=== PATIENT | female | born 1955 | race Caucasian/White ===

== ENCOUNTER 2017-12-26 17:00 | Inpatient (IN) | payer BC ==
[~2017-12-26] VITALS: Ht 162.6 cm; Wt 69.0 kg
[2017-12-26 18:09] LABS: BASOPHILS # (AUTO) 0.1 (0.0-0.1); BASOPHILS % 1.1 % (0.0-1.0); EOSINOPHILS # (AUTO) 0.8 (0.0-0.4); EOSINOPHILS % 9.5 % (0.0-6.0); HEMATOCRIT 45.3 % (34.2-44.1); HEMOGLOBIN 14.9 g/dL (12.0-16.0); LYMPHOCYTES # (AUTO) 1.8 (1.0-3.2); LYMPHOCYTES % 21.8 % (18.0-39.1); MEAN CORPUSCULAR HEMOGLOBIN 27.9 pg (28-32); MEAN CORPUSCULAR HGB CONC 32.9 g/dL (31-35); MEAN CORPUSCULAR VOLUME 84.7 fL (81-99); MONOCYTES # (AUTO) 0.6 (0.2-0.8); MONOCYTES % 7.6 % (4.4-11.3); NEUTROPHILS % 59.6 % (38.7-80.0); PLATELET COUNT 404 x10e3/uL (140-360); RED BLOOD COUNT 5.35 x10e6/uL (3.6-5.1); RED CELL DISTRIBUTION WIDTH 13.2 % (11.7-14.4)
[2017-12-26 18:18] LABS: INR 1.04; PROTHROMBIN TIME 12.8 seconds (11.9-14.5)
[2017-12-26 18:19] LABS: PARTIAL THROMBOPLASTIN TIME 28.1 seconds (23.8-35.5)
[2017-12-26 18:25] LABS: ALANINE AMINOTRANSFERASE 8 IU/L (0-55); ALBUMIN 3.6 g/dL (3.5-5.0); ALBUMIN/GLOBULIN RATIO 0.9 (0.8-2.0); ALKALINE PHOSPHATASE 86 IU/L (40-150); ANION GAP 13.8 mmol/L (8-16); BLOOD UREA NITROGEN < 5 mg/dL (7-26); CALCIUM 9.6 mg/dL (8.4-10.2); CARBON DIOXIDE 25 mmol/L (22-29); CHLORIDE 100 mmol/L (98-107); EST GLOMERULAR FILTRATION RATE > 60 ML/MIN (60-); GLUCOSE 88 mg/dL (74-118); POTASSIUM 3.8 mmol/L (3.5-5.1); SODIUM 135 mmol/L (136-145)
--- NOTE | 2017-12-26 18:25 | Diagnostic Imaging Report ---
PROCEDURE: Frontal and lateral views of the chest. COMPARISON: None. INDICATIONS: FLUID IN LUNG FINDINGS: Lines/tubes: None. Lungs and pleura: Lungs are well-inflated. Moderate right-sided pleural effusion with associated right lower lobe compressive atelectasis and/or consolidation. Linear opacities projecting in the left costophrenic sulcus on the frontal view likely represents subsegmental atelectasis or scarring in the lingula 6 mm nodular density projecting in the retrocardiac region on the frontal view may represent a calcified granuloma. Mild prominence of the interstitial markings. Heart and mediastinum: Cardiac silhouette is unremarkable. Pulmonary vasculature is normal. Bones: No acute bony abnormality. IMPRESSION: 1. moderate right pleural effusion and associated right lower lobe compressive atelectasis and/or consolidation. 2. Mild prominence of interstitial markings may reflect chronic interstitial changes. 3. Subsegmental atelectasis or scarring in the lingula. Long Reyna M.D. Dictated by: Long Reyna M.D. on 12/26/2017 at 18:29 Electronically approved by: Long Reyna M.D. on 12/26/2017 at 18:29
[2017-12-26 18:26] LABS: BUN/CREATININE RATIO 8 (6-25)
[2017-12-26] MEDS ORDERED: ONDANSETRON HCL INJ 2 MG/ML VIAL IV STA (18:34)
[2017-12-26] MEDS ORDERED: MORPHINE SULFATE 2 MG/ML SYR IV STA (18:34)
[2017-12-26 18:55] LABS: CREATINE KINASE 55 IU/L (29-168)
--- NOTE | 2017-12-26 20:03 | Diagnostic Imaging Report ---
EXAM: XR CHEST 1 VIEW DATE: 12/26/2017 7:48 PM INDICATION: Status post thoracentesis COMPARISON: Same day at 1748 FINDINGS: Lines and Tubes: None Heart and Mediastinum: No acute cardiomediastinal findings. Lungs and Pleura: Moderate pleural parenchymal opacity in the right mid and lower lung obscuring the right hemidiaphragm is similar allowing for differences in technique/positioning. Bones and Soft Tissues: No acute findings. IMPRESSION: 1. Persistent small to moderate right effusion with superimposed atelectasis and/or pneumonia. Underlying malignancy not excluded. 2. Interstitial prominence asymmetric to the right could represent edema, with lymphangitic spread of malignancy not excluded. Signed by: Dr. Mal العلي MD on 12/26/2017 7:59 PM
[2017-12-26 20:27] LABS: BODY FLUID APPEARANCE CLOUDY; BODY FLUID COLOR YELLOW; BODY FLUID TYPE PLEURAL; RBC,BODY FLUID 80 cells/uL; WBC,BODY FLUID 1304 cells/uL
--- NOTE | 2017-12-26 20:48 | Diagnostic Imaging Report ---
EXAM: CT Chest WITH contrast INDICATION: COMPARISON: Same day radiographs TECHNIQUE: The Chest was scanned utilizing a multidetector helical scanner after administration of IV contrast. Coronal and sagittal reformations were obtained. Reformatted axial MIP images were obtained and reviewed. IV CONTRAST: COMPLICATIONS: None RADIATION DOSE: Total DLP: 509 mGy*cm Estimated effective dose: (DLP x 0.015 x size factor) mSv CTDIvol has been reviewed. It is below the limits set by the Radiation Protocol Committee (RPC). FINDINGS: Lines and Tubes: None. Lower Neck: Necrotic 25 x 29 mm supraclavicular lymph node on the right. Heart and Great Vessels: The aorta and main pulmonary artery measure 32 and 32 mm. respectively. No pericardial effusion. No central pulmonary and bolus. Moderate narrowing right lower lobe pulmonary artery. Lymph Nodes: Right paratracheal and hilar mass/adenopathy as below. 21 x 8 mm level 6. Lungs: Ill-defined right hilar mass measuring approximately 66 x 53 mm encasing the right pulmonary artery, narrowing the right lower lobe bronchus, and obstructing the right middle lobe bronchus. Mass crosses to the left of midline in the subcarinal and supraclinoid region with contact of more than 180 degrees of the left mainstem bronchus. Mass extends into the right peritracheal region with 41 x 27 mm mass in the 2R/4R region. Proximal moderate bronchial wall thickening presumed lymphangitic spread of malignancy with additional advanced septal thickening in the right upper lobe and right lower lobe suggesting lymphangitic spread of malignancy. There is complete collapse of the right middle lobe. Moderate emphysematous changes are present. Atelectasis right lung base presumed postobstructive. Small right effusion. Upper abdomen: There is nodularity of the left adrenal gland most focally measuring 19 mm. 14 mm hepatic hypodensity image 94, 16 mm hypodensity image 95. Bones and Soft Tissues: No acute findings. IMPRESSION: 1. Large right hilar mass most consistent with primary malignancy. Extensive mediastinal/hilar adenopathy and lymphangitic spread of malignancy throughout the right lung. There is narrowing of the right upper lobe and lower lobe bronchi with obliteration of the right middle lobe bronchus and collapse of the right middle lobe. 2. Presumed hepatic and possibly left adrenal adenopathy. Metastatic right supraclavicular adenopathy. Signed by: Dr. Mal العلي MD on 12/26/2017 8:44 PM
[2017-12-26 21:22] LABS: EOSINOPHILS,BODY FLUID 46 %; LYMPHOCYTES,BODY FLUID 36 %; MONO/MACROPHG,BODY FLUID 10 %; NEUTROPHILS,BODY FLUID 2 %
[2017-12-26 21:23] LABS: OTHER CELLS,BODY FLUID 6 %
[2017-12-26 22:00] VITALS: BP 138/88
[2017-12-26] MEDS ORDERED: SODIUM CHLORIDE 0.9% 50ML 50 ML ONE (22:38)
[2017-12-26] MEDS ORDERED: IOPAMIDOL 370 MG/ML 200 ML INFUS..BTL INJ ONE (22:38)
[2017-12-26] MEDS: FAMOTIDINE 20 MG TAB PO SCH (22:48)
[2017-12-26 22:58] VITALS: BP 138/88
[2017-12-27] VITALS (11 sets, daily range): BP systolic 82–126; BP diastolic 60–90
[2017-12-27 03:04] LABS: CREATINE KINASE 51 IU/L (29-168)
[2017-12-27 05:53] LABS: BASOPHILS # (AUTO) 0.1 (0.0-0.1); BASOPHILS % 0.7 % (0.0-1.0); EOSINOPHILS # (AUTO) 0.7 (0.0-0.4); EOSINOPHILS % 8.4 % (0.0-6.0); HEMATOCRIT 44.3 % (34.2-44.1); HEMOGLOBIN 14.3 g/dL (12.0-16.0); LYMPHOCYTES # (AUTO) 1.9 (1.0-3.2); LYMPHOCYTES % 21.9 % (18.0-39.1); MEAN CORPUSCULAR HEMOGLOBIN 27.7 pg (28-32); MEAN CORPUSCULAR HGB CONC 32.3 g/dL (31-35); MEAN CORPUSCULAR VOLUME 85.9 fL (81-99); MONOCYTES # (AUTO) 0.8 (0.2-0.8); MONOCYTES % 9.8 % (4.4-11.3); NEUTROPHILS % 58.8 % (38.7-80.0); PLATELET COUNT 413 x10e3/uL (140-360); RED BLOOD COUNT 5.16 x10e6/uL (3.6-5.1); RED CELL DISTRIBUTION WIDTH 13.4 % (11.7-14.4)
[2017-12-27 06:14] LABS: ANION GAP 13.8 mmol/L (8-16); BLOOD UREA NITROGEN < 5 mg/dL (7-26); CALCIUM 9.4 mg/dL (8.4-10.2); CARBON DIOXIDE 24 mmol/L (22-29); CHLORIDE 99 mmol/L (98-107); CHOL/HDL RATIO 2.8 (3.0-3.6); CHOLESTEROL 126 MD/DL (0-199); CREATININE, SERUM 0.63 mg/dL (0.57-1.11); EST GLOMERULAR FILTRATION RATE > 60 ML/MIN (60-); GLUCOSE 113 mg/dL (74-118); HDL CHOLESTEROL 45 MG/DL (40-60); LDL CHOLESTEROL 63 MG/DL (60-130); POTASSIUM 3.8 mmol/L (3.5-5.1); SODIUM 133 mmol/L (136-145); TRIGLYCERIDES 90 MG/DL (0-149)
[2017-12-27 06:22] LABS: BUN/CREATININE RATIO 8 (6-25)
[2017-12-27] MEDS: ONDANSETRON HCL INJ 2 MG/ML VIAL IV PRN (06:32)
[2017-12-27] MEDS: HYDROMORPHONE 1MG/1ML INJ IV PRN ×2 (06:32→21:01)
[2017-12-27 06:41] LABS: CREATINE KINASE 55 IU/L (29-168)
[2017-12-27] MEDS: FAMOTIDINE 20 MG TAB PO SCH ×2 (08:00→20:45)
[2017-12-27] MEDS: NICOTINE 21 MG/EA PATCH TOP SCH (09:00)
[2017-12-27] MEDS ORDERED: XANAX0.5 MG (12:15)
[2017-12-27] MEDS ORDERED: DAPAGLIFLOZIN PO (12:15)
[2017-12-27] MEDS ORDERED: LEXAPRO20 MG PO (12:15)
[2017-12-27] MEDS ORDERED: METOPROLOL SUCC50 MG PO (12:15)
[2017-12-27] MEDS ORDERED: LEVOTHYROXINE75 MCG PO (12:15)
[2017-12-27] MEDS ORDERED: ASPIR 8181 MG PO (12:15)
[2017-12-27] MEDS ORDERED: IRBESARTAN150 MG PO (12:15)
[2017-12-27] MEDS ORDERED: AMLODIPINE BESY10 MG PO (12:15)
[2017-12-27 15:10] LABS: CREATINE KINASE 60 IU/L (29-168)
[2017-12-27] MEDS ORDERED: ALPRAZOLAM 0.5 MG TAB PO SCH (15:15)
--- NOTE | 2017-12-27 16:10 | History and Physical ---
NO DICTATION, LENGTH 1 SECOND. Job#: [id number] MH
[2017-12-27] MEDS: ALBUTEROL/IPRATROPIUM 3 ML NEB NEB SCH (20:00)
[2017-12-27] MEDS ORDERED: METFORMIN HCL500 MG PO (20:49)
[2017-12-27] MEDS ORDERED: PROAIR HFA INH8.5 GM (20:49)
[2017-12-28] VITALS (8 sets, daily range): BP systolic 89–117; BP diastolic 60–71
[2017-12-28] MEDS: ALBUTEROL/IPRATROPIUM 3 ML NEB NEB SCH ×4 (01:00→20:35)
[2017-12-28] MEDS: HYDROMORPHONE 1MG/1ML INJ IV PRN ×4 (04:10→23:08)
[2017-12-28] MEDS: ONDANSETRON HCL INJ 2 MG/ML VIAL IV PRN ×3 (04:14→23:04)
[2017-12-28] MEDS: LEVOTHYROXINE SODIUM 125 MCG TAB PO SCH (06:05)
[2017-12-28] MEDS: ASPIRIN 81 MG CHEW TAB PO SCH (08:41)
[2017-12-28] MEDS: FAMOTIDINE 20 MG TAB PO SCH ×2 (08:41→21:56)
[2017-12-28] MEDS: IRBESARTAN 150 MG TAB PO SCH (08:42)
[2017-12-28] MEDS: METOPROLOL SUCCINATE 50 MG TAB XL PO SCH ×3 (08:44→16:00)
[2017-12-28] MEDS: ESCITALOPRAM OXALATE 10 MG TAB PO SCH (08:44)
[2017-12-28] MEDS: NICOTINE 21 MG/EA PATCH TOP SCH (08:44)
[2017-12-28] MEDS: AMLODIPINE BESYLATE 5 MG TAB PO SCH (08:44)
[2017-12-28] MEDS ORDERED: DAPAGLIFLOZIN 5 MG PO SCH (09:00)
[2017-12-28] MEDS ORDERED: AMLODIPINE BESYLATE 10 MG TAB PO SCH (09:00)
[2017-12-28] MEDS: DAPAGLIFLOZIN 5 MG PO SCH (09:00)
[2017-12-28] MEDS ORDERED: LEVOTHYROXINE SODIUM 75 MCG TAB PO SCH (09:00)
[2017-12-28] MEDS ORDERED: NON-FORMULARY MEDICATION (Escitalopram Oxalate (Lexapro) 20 MG) PO SCH (09:00)
[2017-12-29] VITALS (8 sets, daily range): BP systolic 81–129; BP diastolic 51–80
[2017-12-29] MEDS: ALBUTEROL/IPRATROPIUM 3 ML NEB NEB SCH ×5 (00:39→23:45)
[2017-12-29] MEDS: LEVOTHYROXINE SODIUM 125 MCG TAB PO SCH (05:30)
[2017-12-29] MEDS: HYDROMORPHONE 1MG/1ML INJ IV PRN (08:30)
[2017-12-29] MEDS: ASPIRIN 81 MG CHEW TAB PO SCH (08:37)
[2017-12-29] MEDS: NICOTINE 21 MG/EA PATCH TOP SCH (08:37)
[2017-12-29] MEDS: FAMOTIDINE 20 MG TAB PO SCH ×2 (08:37→19:53)
[2017-12-29] MEDS: IRBESARTAN 150 MG TAB PO SCH (08:37)
[2017-12-29] MEDS: DAPAGLIFLOZIN 5 MG PO SCH (08:38)
[2017-12-29] MEDS: AMLODIPINE BESYLATE 5 MG TAB PO SCH (08:38)
[2017-12-29] MEDS: ESCITALOPRAM OXALATE 10 MG TAB PO SCH (08:38)
[2017-12-29] MEDS: METOPROLOL SUCCINATE 50 MG TAB XL PO SCH (08:38)
[2017-12-29] MEDS: HYDROCODONE/APAP 5MG-325MG TAB PO PRN ×2 (13:22→19:57)
--- NOTE | 2017-12-29 13:40 | Consultation ---
DATE OF CONSULTATION: PULMONARY CONSULTATION This is a patient of Dr. Lonnie Brooks and Dr. Ronen Pizano. The patient was referred to the hospital from Dr. Pizano's office with shortness of breath and pain in the back of 3 days' duration. It awakened her from rest. No fever or chills. Scant sputum, no hemoptysis. PAST HISTORY: Hypothyroidism. ALLERGIES: NO KNOWN ALLERGIES. MEDICATIONS: Include albuterol, metformin, Xanax, amlodipine, aspirin, Lexapro, irbesartan, levothyroxine 75 mcg, metoprolol and dapaglifozin for diabetes. She is uncertain whether she lost weight. SOCIAL HISTORY: A frail, white female, looking her stated age. Works as a product designer of fire products. Smoked a pack of cigarettes a day for 40 years. Born in [place]. SURGERIES: Gallbladder, calcium deposits removed from her legs. FAMILY HISTORY: Noncontributory. PHYSICAL EXAMINATION HEAD: Normocephalic and atraumatic. LUNGS: Diminished breath sounds at right chest. Rhonchi are located to the right chest. HEART: Regular rhythm. ABDOMEN: Nontender. EXTREMITIES: Not edematous. Thoracentesis was performed. Fluid was apparently not sent for cytology. This was discussed with the patient. The results will not be back until Saturday at the earliest. She has agreed to bronchoscopy and transbronchial biopsy. This will be scheduled for 12/30/2017 at 9 a.m. Thank you for this kind referral. Job#: [id number]
[2017-12-30] VITALS (7 sets, daily range): BP systolic 87–112; BP diastolic 62–75
[2017-12-30] MEDS: ALPRAZOLAM 1 MG TAB PO PRN (03:11)
[2017-12-30] MEDS: LEVOTHYROXINE SODIUM 125 MCG TAB PO SCH (05:08)
[2017-12-30] MEDS: ALBUTEROL/IPRATROPIUM 3 ML NEB NEB SCH ×3 (06:57→20:00)
[2017-12-30] MEDS: FAMOTIDINE 20 MG TAB PO SCH ×2 (08:00→20:26)
[2017-12-30] MEDS ORDERED: LIDOCAINE HCL 4% 50 ML BTL ONE (08:40)
[2017-12-30] MEDS ORDERED: OXYMETAZOLINE HCL 0.05% NAS 1 SPRAY BTL ONE (08:41)
[2017-12-30] MEDS ORDERED: LIDOCAINE HCL 2% 30 ML TUBE ONE (08:41)
[2017-12-30] MEDS ORDERED: ACETYLCYSTEINE 200 MG/ML 4ML VIAL ONE (08:41)
[2017-12-30] MEDS: IRBESARTAN 150 MG TAB PO SCH (09:00)
[2017-12-30] MEDS: ESCITALOPRAM OXALATE 10 MG TAB PO SCH (09:00)
[2017-12-30] MEDS: AMLODIPINE BESYLATE 5 MG TAB PO SCH (09:00)
[2017-12-30] MEDS: DAPAGLIFLOZIN 5 MG PO SCH (09:00)
[2017-12-30] MEDS: ASPIRIN 81 MG CHEW TAB PO SCH (09:00)
[2017-12-30] MEDS: METOPROLOL SUCCINATE 50 MG TAB XL PO SCH (09:00)
--- NOTE | 2017-12-30 10:00 | Operative Report ---
DATE OF PROCEDURE: PROCEDURE: Bronchoscopy. Patient of Dr. Pizano and Dr. Lonnie Brooks. Patient with apparent tumor in the middle lobe. Bronchoscopy was performed for diagnosis. ANESTHESIA: MAC provided by Dr. Guerrier. BLOOD LOSS: Approximately 5 mL. The patient was bronchoscoped via an LMA. Normal vocal cord. Mild laryngitis. There was a moderate amount of secretions. Tumor was largely obstructing the right mainstem bronchus. Bronchoscope could not be passed the obstruction. Five bronchial biopsies, washings and a brushing were obtained. The tumor appeared to be approximately 1 cm below the natalio. There appeared to be some splaying of the natalio as well. Job#: [id number] SHARYN
--- NOTE | 2017-12-30 11:05 | Diagnostic Imaging Report ---
PROCEDURE: CHEST SINGLE (PORTABLE) COMPARISON: CT chest 12/26/2017. INDICATIONS: STATUS POST BRONCHOSCOPY FINDINGS: Right-sided hilar mass with mediastinal invasion and post obstructive right middle lobe pneumonia is seen to better advantage of comparison CT. Right upper lobe remains well aerated. Left lung is clear. Cardiomediastinal contour stable. No pneumothorax. No acute osseous abnormality. CONCLUSION: Grossly stable radiographic appearance of right hilar mass with post obstructive right middle lobe pneumonia and mediastinal invasion. No pneumothorax status post bronchoscopy. Dictated by: Haroon Recinos M.D. on 12/30/2017 at 11:09 Electronically approved by: Haroon Recinos M.D. on 12/30/2017 at 11:09
[2017-12-30] MEDS: NICOTINE 21 MG/EA PATCH TOP SCH (12:00)
[2017-12-30] MEDS: HYDROCODONE/APAP 5MG-325MG TAB PO PRN ×2 (12:20→20:26)
[2017-12-30] MEDS ORDERED: SEVOFLURANE INHAL SOLN 250 ML PEN BTL ONE (17:37)
[2017-12-30] MEDS ORDERED: LIDOCAINE HCL 2% LOCAL INJ 5 ML SDV VIAL INJ ONE (17:37)
[2017-12-30] MEDS ORDERED: PROPOFOL IV EMULSION 10 MG/ML 20 ML VIAL ONE (17:37)
[2017-12-30] MEDS ORDERED: MIDAZOLAM HCL 2 MG/2 ML VIAL ONE (17:39)
[2017-12-30] MEDS ORDERED: FENTANYL CITRATE/PF 100MCG/2 ML INJ ONE (17:39)
[2017-12-30] MEDS ORDERED: KETAMINE HCL INJ 50 MG/ML 10 ML VIAL ONE (17:39)
[2017-12-31] VITALS: BP 115/72
[2017-12-31] MEDS: ALBUTEROL/IPRATROPIUM 3 ML NEB NEB SCH ×4 (00:30→20:30)
[2017-12-31 01:55] VITALS: BP 115/72
[2017-12-31 04:00] VITALS: BP 121/80
[2017-12-31] MEDS: LEVOTHYROXINE SODIUM 125 MCG TAB PO SCH (05:32)
[2017-12-31] MEDS: HYDROCODONE/APAP 5MG-325MG TAB PO PRN ×2 (06:26→17:08)
[2017-12-31] MEDS: METOPROLOL SUCCINATE 50 MG TAB XL PO SCH (08:15)
[2017-12-31] MEDS: AMLODIPINE BESYLATE 5 MG TAB PO SCH (08:16)
[2017-12-31] MEDS: IRBESARTAN 150 MG TAB PO SCH (08:16)
[2017-12-31 08:20] VITALS: BP 100/62
[2017-12-31] MEDS: FAMOTIDINE 20 MG TAB PO SCH ×2 (08:26→21:44)
[2017-12-31] MEDS: ASPIRIN 81 MG CHEW TAB PO SCH (08:26)
[2017-12-31] MEDS: NICOTINE 21 MG/EA PATCH TOP SCH (08:27)
[2017-12-31] MEDS: DAPAGLIFLOZIN 5 MG PO SCH (08:27)
[2017-12-31] MEDS: ESCITALOPRAM OXALATE 10 MG TAB PO SCH (08:27)
[2017-12-31 08:49] VITALS: BP 100/62
[2017-12-31] MEDS: ALPRAZOLAM 1 MG TAB PO PRN (21:52)
[2018-01-01] VITALS (8 sets, daily range): BP systolic 115–142; BP diastolic 56–91
[2018-01-01] MEDS: ALBUTEROL/IPRATROPIUM 3 ML NEB NEB SCH ×4 (01:00→19:15)
[2018-01-01] MEDS: LEVOTHYROXINE SODIUM 125 MCG TAB PO SCH (05:36)
[2018-01-01] MEDS: ESCITALOPRAM OXALATE 10 MG TAB PO SCH (07:59)
[2018-01-01] MEDS: ASPIRIN 81 MG CHEW TAB PO SCH (07:59)
[2018-01-01] MEDS: IRBESARTAN 150 MG TAB PO SCH (07:59)
[2018-01-01] MEDS: FAMOTIDINE 20 MG TAB PO SCH ×2 (07:59→20:51)
[2018-01-01] MEDS: NICOTINE 21 MG/EA PATCH TOP SCH (08:00)
[2018-01-01] MEDS: AMLODIPINE BESYLATE 5 MG TAB PO SCH (08:00)
[2018-01-01] MEDS: METOPROLOL SUCCINATE 50 MG TAB XL PO SCH (08:00)
[2018-01-01] MEDS: DAPAGLIFLOZIN 5 MG PO SCH (08:05)
[2018-01-01] MEDS ORDERED: GADOBENATE DIMEGLUMINE 1 ML IV ONE (13:48)
--- NOTE | 2018-01-01 15:10 | Diagnostic Imaging Report ---
EXAMINATION: MRI of the brain with and without contrast HISTORY: Lung cancer staging COMPARISON: None. TECHNIQUE: Pre-contrast: Sagittal T2; axial T1-IR, T2, MPGR, DWI, FLAIR; Post-contrast: axial and coronal T1. Intravenous contrast: 15 mL of MultiHance. IMAGE QUALITY: Adequate. FINDINGS: Parenchyma: 1. Few scattered white matter T2 and FLAIR hyperintense foci, nonspecific chronic microvascular ischemic changes. 2. Diffuse T2 hyperintensity within most of the central manuel, without mass effect or enhancement, this is nonspecific and may represent sequela from prior osmotic demyelination, chronic microvascular ischemic changes or remote ischemia/infection. 3. No mass or hemorrhage. No acute or chronic vascular insult. Skull: No abnormal signal intensity or enhancement. Major arteries: Expected flow voids present. Dural sinuses: Expected flow voids present. Ventricles: No hydrocephalus or displacement. Subarachnoid spaces: No abnormal signal intensity or enhancement. Brain volume: Normal for age. Foramen magnum: No mass, Chiari malformation, or basilar invagination. Sella: No gross mass. Paranasal/mastoid sinuses: Unremarkable. IMPRESSION: 1. No evidence of metastatic disease. 2. Mild chronic microvascular ischemic changes. Signed by: Dr. Shu Fierro M.D. on 01/01/2018 3:07 PM
--- NOTE | 2018-01-01 17:58 | Diagnostic Imaging Report ---
Bone Scan, delayed phase INDICATION: 62 F with newly diagnosed metastatic lung cancer; staging. Pain between shoulder blades x 3 days. COMPARISON: Chest CT 12/26/2017 REPORT: Approximately 4 hours following intravenous administration of 27.5 mCi of Tc-99m MDP, delayed total body images in the anterior and posterior projections and selected spot images were obtained. Focal moderately increased tracer is seen in the right side of T5/T6. More markedly increased tracer is seen in the right half of L5. Otherwise, distribution of tracer activity is unremarkable throughout the skeletal system. Diffuse mildly increased tracer is seen in the right chest. No abnormal accumulation of tracer is seen in the urinary tract. IMPRESSION: 1. Osteoblastic process in L5 is worrisome for solitary bone metastasis and should be compared with findings on CT. The osteoblastic process in T5/T6 is more typical of degenerative change although metastasis cannot be absolutely excluded. There is no correlate for this lesion on the recent chest CT. 2. Scan evidence of small malignant right pleural effusion. Signed by: Dr. Katie Roman M.D. on 01/01/2018 5:54 PM
[2018-01-02] VITALS (8 sets, daily range): BP systolic 109–134; BP diastolic 76–87
[2018-01-02] MEDS: ALBUTEROL/IPRATROPIUM 3 ML NEB NEB SCH ×4 (04:53→19:12)
[2018-01-02] MEDS: LEVOTHYROXINE SODIUM 125 MCG TAB PO SCH (05:41)
[2018-01-02] MEDS: METOPROLOL SUCCINATE 50 MG TAB XL PO SCH (08:01)
[2018-01-02] MEDS: AMLODIPINE BESYLATE 5 MG TAB PO SCH (08:01)
[2018-01-02] MEDS: IRBESARTAN 150 MG TAB PO SCH (08:01)
[2018-01-02] MEDS: DAPAGLIFLOZIN 5 MG PO SCH (08:01)
[2018-01-02] MEDS: ASPIRIN 81 MG CHEW TAB PO SCH (08:01)
[2018-01-02] MEDS: NICOTINE 21 MG/EA PATCH TOP SCH (08:01)
[2018-01-02] MEDS: FAMOTIDINE 20 MG TAB PO SCH ×2 (08:01→21:08)
[2018-01-02] MEDS: ESCITALOPRAM OXALATE 10 MG TAB PO SCH (08:01)
[2018-01-02] MEDS: HYDROCODONE/APAP 5MG-325MG TAB PO PRN (16:39)
[2018-01-03 00:36] VITALS: BP 121/72
[2018-01-03] MEDS: ALPRAZOLAM 1 MG TAB PO PRN (00:38)
[2018-01-03] MEDS: ALBUTEROL/IPRATROPIUM 3 ML NEB NEB SCH ×4 (01:08→19:37)
[2018-01-03 04:39] VITALS: BP 109/77
[2018-01-03] MEDS: LEVOTHYROXINE SODIUM 125 MCG TAB PO SCH (05:14)
[2018-01-03] MEDS: FAMOTIDINE 20 MG TAB PO SCH ×2 (08:00→20:00)
[2018-01-03] MEDS: NICOTINE 21 MG/EA PATCH TOP SCH (09:00)
[2018-01-03] MEDS: IRBESARTAN 150 MG TAB PO SCH (09:00)
[2018-01-03] MEDS: ESCITALOPRAM OXALATE 10 MG TAB PO SCH (09:00)
[2018-01-03] MEDS: METOPROLOL SUCCINATE 50 MG TAB XL PO SCH (09:00)
[2018-01-03] MEDS: ASPIRIN 81 MG CHEW TAB PO SCH (09:00)
[2018-01-03] MEDS: AMLODIPINE BESYLATE 5 MG TAB PO SCH (09:00)
[2018-01-03] MEDS: DAPAGLIFLOZIN 5 MG PO SCH (09:00)
[2018-01-03 09:05] VITALS: BP 121/77
[2018-01-03 11:53] VITALS: BP 107/77
[2018-01-03] MEDS: HYDROCODONE/APAP 5MG-325MG TAB PO PRN ×2 (13:55→22:00)
[2018-01-03 16:39] VITALS: BP 96/66
--- NOTE | 2018-01-03 19:54 | Consultation ---
DATE OF CONSULTATION: December 31, 2017 CONSULTATION TO: Dr. Haroon Krishna. HISTORY OF PRESENT ILLNESS: Aileen Cheung is a 62-year-old white female referred to me for evaluation of pleural effusion, mass in the lung, right supraclavicular metastases. As per the history, the patient had drainage of the fluid. A biopsy of the lung lesion was done. 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 However, the reports were still not available till 01/03/2018 and I had called by Dr. Krishna as well as Dr. Figueroa, the pathologist. SOCIAL HISTORY: History of smoking. FAMILY HISTORY: Noncontributory. ALLERGIES: REPORTED NONE. MEDICATIONS 1. Albuterol. 2. Pepcid. 3. Nicotine. 4. Ondansetron. 5. Aspirin. 6. Irbesartan. 7. Metoprolol. 8. Amlodipine. 9. Synthroid. 10. Tylenol. 11. Alprazolam. REVIEW OF SYSTEMS HEENT: Normal. CARDIAC: History of hypertension. RESPIRATORY: Lung cancer. GI: Normal. : Normal. MUSCULOSKELETAL: Normal. SKIN AND BREASTS: Normal. NEUROENDOCRINE: No history of hypothyroidism. PHYSICAL EXAMINATION GENERAL: A moderately built female. NECK: Right supraclavicular lymph node 2 cm. HEART: Within normal limits. LUNGS: Dullness at the right base. ABDOMEN: Soft. RECTAL AND VAGINAL: Deferred. CENTRAL NERVOUS SYSTEM: Essentially normal. EXTREMITIES: Essentially normal. LABORATORY DATA: Shows a sodium of 133, potassium 3.8, chloride 99, CO2 of 24, BUN 5, creatinine 0.6, glucose 113. Hemoglobin 14.3 hematocrit 44.3, white count of 8400, platelets 413,000. INR of 1.04. Bilirubin 0.5, SGOT 8, SGPT 13, alkaline phosphatase 86. After calling Dr. Figueroa was given the final report of small-cell lung cancer, pleural fluid being negative. IMPRESSION 1. Lung cancer, extensive disease, small-cell. 2. Right supraclavicular metastases. 3. Right paratracheal and hilar adenopathy by CAT scan. 4. Right hilar mass 6.6 x 5.3 cm. 5. Encasement of right pulmonary artery by the tumor. 6. Lymphangitic spread of the tumor. 7. Right-sided pleural effusion. 8. Adrenal metastases. 9. Possible liver metastases. 10. Hypothyroidism. 11. Hypertension. 12. Bone metastases by a total body bone scan. PLAN, COMMENTS AND SUGGESTIONS: This is an incurable disease. MRI of the brain has been done. This is reported negative. Multiple discussions were carried out with the patient and the son. The son's as per him has been treated for cancer of the breast. He suggested the patient's records so that he could take the mother to [facility]. Thank you very much for allowing me to participate in the management of this patient. The patient has an incurable disease. Median survival for extensive disease of small cell lung cancer is less than 9 months. Job#: [id number] AKU cc:MD SANTANA RAMEY DO SOUHEIL HADDAD, MD
[2018-01-03 20:00] VITALS: BP 133/80
[2018-01-04] VITALS: BP 141/94
[2018-01-04] MEDS: ALBUTEROL/IPRATROPIUM 3 ML NEB NEB SCH ×3 (01:25→12:30)
[2018-01-04 04:00] VITALS: BP 111/77
[2018-01-04] MEDS: LEVOTHYROXINE SODIUM 125 MCG TAB PO SCH (06:00)
[2018-01-04 07:46] VITALS: BP 109/74
[2018-01-04] MEDS: AMLODIPINE BESYLATE 5 MG TAB PO SCH (09:00)
[2018-01-04] MEDS: METOPROLOL SUCCINATE 50 MG TAB XL PO SCH (09:00)
[2018-01-04] MEDS: DAPAGLIFLOZIN 5 MG PO SCH (09:00)
[2018-01-04] MEDS ORDERED: CIPROFLOXACIN 500 MG TAB PO SCH (09:00)
--- NOTE | 2018-01-04 09:08 | Consultation ---
DATE OF CONSULTATION: January 04, 2018 Ms. Cheung is a pleasant 62-year-old lady who was originally referred to the hospital by her primary care physician after she had complained of shortness of breath and sudden onset of back pain without any fever or chills and scant sputum. The patient was admitted to [facility]. Radiology studies originally included chest x-ray suggested moderate right pleural effusion with associated right lower lobe compressive either atelectasis or consolidation with prominence of interstitial marking with a possible reflection of chronic interstitial changes. Her CT of the chest suggested large right hilar mass most consistent with a primary malignancy, extensive mediastinal hilar adenopathy and lymphangitic spread of malignancy throughout the right lung. Also, there is a narrowing of the right upper lobe and lower lobe bronchial with obliteration of the right middle lobe bronchus and collapse of the right middle lobe. Also, presumed hepatic and possibly left adrenal adenopathy, metastatic subclavicular adenopathy. The patient is status post thoracentesis and bone scan, which bone scan suggested osteomyelitis process in L5 and is worse and worrisome for solitary bone metastasis, and should be compared with the findings on CT scan. The patient is also status post bronchoscopy and bronchial wash, which showed Pseudomonas aeruginosa. That is why infectious disease was consulted for management of the antibiotics and recommendations of antibiotics for pseudomonas that was found on the bronchial wash. As mentioned above, the patient is asymptomatic as far as cough, fever, chills, nausea, and vomiting. PAST MEDICAL HISTORY: Includes she has a history of hypothyroidism, hypertension, history of tobacco smoking. She says she smokes a pack a week. Also, history of alcohol abuse. ALLERGIES: THE PATIENT HAS NO KNOWN DRUG ALLERGIES. LABORATORY STUDIES: Sodium 133, potassium 3.8, creatinine 0.63. Hemoglobin is 14.3, white blood cells 8.49 and platelet count is 413,000. MRI of the brain showed no evidence of metastatic disease. MEDICATIONS: List has been reviewed. As far as infectious disease, I do not see any active antibiotics on her current MAR. REVIEW OF SYSTEMS: No nausea, vomiting, fever, chills, chest pain. Shortness of breath has improved. PHYSICAL EXAMINATION GENERAL: Alert and oriented in bed. VITALS: Temperature is 97, pulse 94, respirations 18, blood pressure 109/74. CV: S1 and S2. CHEST: Equal expansion. Decreased breath sounds. No acute distress. ABDOMEN: Soft and nontender. No distention. HEENT: Moist. NECK: No JVD. EXTREMITIES: No significant edema. No acute distress. ASSESSMENT AND PLAN: This is a pleasant 62-year-old lady who came with sudden onset of shortness of breath and back pain. Workup so far suggesting small cell carcinoma as the biopsy of the lungs suggests she had an incidental finding of Pseudomonas aeruginosa on a bronchial wash in a patient who has no fever and no chills. Culture and sensitivity noted on pseudomonas. Case was discussed with Dr. Huang in detail. We can try Cipro oral for 14 days for now unless other complications arise. Then we may have to switch to IV antibiotics. At this point, she most likely will be alright with Cipro. Will monitor the patient throughout the hospitalization. Further management of this patient will be based on daily findings, laboratory and physical examination. I want to thank Dr. Brooks for this kind consult and allowing us to participate in the medical needs of this lady. DICTATED BY RADHA HOLLY Job#: [id number] PA
[2018-01-04] MEDS: ASPIRIN 81 MG CHEW TAB PO SCH (09:12)
[2018-01-04] MEDS: FAMOTIDINE 20 MG TAB PO SCH (09:12)
[2018-01-04] MEDS: IRBESARTAN 150 MG TAB PO SCH (09:13)
[2018-01-04] MEDS: NICOTINE 21 MG/EA PATCH TOP SCH (09:13)
[2018-01-04] MEDS: ESCITALOPRAM OXALATE 10 MG TAB PO SCH (09:13)
[2018-01-04] MEDS ORDERED: ALPRAZOLAM 1 MG TAB PO PRN (11:30)
[2018-01-04 13:29] VITALS: BP 117/67
[2018-01-04] MEDS ORDERED: NORCO 5-325 TA1 EACH PO (13:41)
[2018-01-04] MEDS ORDERED: IPRAT-ALBUT 0.5-3 ML PO (13:41)
[2018-01-04] MEDS ORDERED: CIPRO500 MG PO (13:42)
[2018-01-04] MEDS ORDERED: ZOFRAN ODT4 MG PO (13:42)
--- NOTE | 2018-01-04 13:52 | Discharge Summary ---
ADMIT DIAGNOSES 1. Right-sided lung mass. 2. Right-sided postobstructive pneumonia. 3. Chronic obstructive pulmonary disease. 4. Tobacco abuse. 5. Hypertensive heart disease. DISCHARGE DIAGNOSES 1. Small cell lung cancer with liver, lung, lymph node, and bone metastases. 2. Chronic obstructive pulmonary disease. 3. Tobacco abuse. 4. Right-sided postobstructive Pseudomonas aeruginosa pneumonia. HOSPITAL COURSE: This is a 62-year-old white woman who was initially admitted to [facility] with the diagnosis of right-sided lung mass with postobstructive pneumonia. During this hospitalization, the patient underwent a CT of the chest that revealed an ill-defined right hilar mass measuring 6.6 x 5.3 cm. The patient was also found to have very suspicious necrotic right 2.5 x 2.9 cm supraclavicular lymph node. Moreover, the CT of the chest revealed right paratracheal and hilar masses/adenopathy. Atelectasis was appreciated in the right lung base presumed to be postobstructive. The CT of the chest also revealed a 1.4 cm hepatic hypodensity consistent with metastatic lesion. During this hospitalization, the patient underwent bronchoscopy. The washings revealed the presence of Pseudomonas aeruginosa. This strain of Pseudomonas aeruginosa was found to be sensitive to ciprofloxacin. The pathology from the fine needle aspiration of the right-sided hilar mass revealed small cell carcinoma. During the hospitalization, the patient was seen by pulmonology, namely Dr. Krishna, as well as oncologist, namely Dr. Nichole. The patient's condition on discharge was stable. During this hospitalization, the patient did qualify for supplemental home oxygen. DISCHARGE MEDICATIONS 1. Ciprofloxacin 500 mg p.o. b.i.d. for 14 days. 2. Amlodipine 5 mg daily. 3. Lynn 5 per 325 mg one every 6 hours p.r.n. pain, 30 prescribed. 4. Alprazolam 1 mg b.i.d. p.r.n. anxiety, 60 prescribed. 5. Zofran 8 mg p.o. b.i.d. p.r.n. nausea, 12 prescribed. 6. Albuterol/ipratropium nebulizer treatments up to 4 times a day as needed for shortness of breath or wheezing. 7. Nebulizer machine. 8. Lexapro 20 mg daily. 9. Levothyroxine 125 mcg daily. 10. Supplemental oxygen at 2 L a minute continuous. FOLLOWUP INSTRUCTIONS: The patient is instructed to follow up with her oncologist, namely Dayanara, within 1 week. The adult daughter present states that she already has an appointment with [facility] in [place], [place]. Prior to discharge, I completed a family medical leave act paperwork so that the adult daughter, Kasey Cheung, could care for her terminally ill mother, Aileen Cheung, 24 hours a day. PEÑA FLORES MD Job#: [id number] RI cc:MD JARROD RAMEY MD STEVE HADDAD, MD
== END 2018-01-04 15:22 | disposition home or self-care (01) | DRG 180 ==
LOC: ER 17:00 → ERHOLD 19:45 → MED/SURG2 20:42
PROC: 0W993ZX Drainage of Right Pleural Cavity, Percutaneous Approach, Diagnostic (ICD-10-PCS; 2017-12-29)
PROC: 0BB58ZX Excision of Right Middle Lobe Bronchus, Via Natural or Artificial Opening Endoscopic, Diagnostic (ICD-10-PCS; principal; 2017-12-30 09:01)
DX: C34.11 Malignant neoplasm of upper lobe, right bronchus or lung (principal); J15.1 Pneumonia due to Pseudomonas; J96.91 Respiratory failure, unspecified with hypoxia; C78.7 Secondary malignant neoplasm of liver and intrahepatic bile duct; C79.51 Secondary malignant neoplasm of bone; C79.71 Secondary malignant neoplasm of right adrenal gland; C77.0 Secondary and unspecified malignant neoplasm of lymph nodes of head, face and neck; J91.0 Malignant pleural effusion; R07.89 Other chest pain; E11.9 Type 2 diabetes mellitus without complications; E03.9 Hypothyroidism, unspecified; I10 Essential (primary) hypertension; Z72.0 Tobacco use; J44.9 Chronic obstructive pulmonary disease, unspecified; Z85.3 Personal history of malignant neoplasm of breast
CPT/HCPCS: 31625; 36415; 70553; 71045; 71046; 71260; 78306; 80048; 80053; 80061; 82150; 82378; 82550; 82553; 82945; 83615; 83880; 84157; 84484; 85025; 85610; 85730; 87070; 87102; 87116; 87186; 87205; 87206; 87335; 88112; 88305; 88342; 89051; 93005; 94640; 99284; A9503; J1170; J2001; J2250; J2270; J2405; Q9967